=== PATIENT | female | born 2000 ===

== ENCOUNTER 2023-07-13 21:17 | Outpatient (REF) | payer MEDICAID, SELFPAY ==
[2023-07-13 21:20] LABS: Abs Immature Grans 0.05 10^3/uL (0.0-0.06); Absolute Basophil Count 0.06 10^3/uL (0.0-0.2); Absolute Monocyte Count 0.84 10^3/uL (0.1-0.8); Basophils % 0.5; Eosinophils % 1.5; HCT 41.9 % (36.0-46.0); HGB 14.4 g/dL (11.2-15.7); Immature Grans % 0.4; Lymphocytes % 25.6; MCHC 34.4 % (32.0-36.0); MCV 85 fL (80-95); MPV 10.2 fL (8.0-11.0); Monocytes % 7.2; Neutrophils % 64.8; Platelet Count 362 10^3/uL (130-400); RBC 4.96 10^6/uL (3.93-5.22); RDW-SD 36.5 fL
[2023-07-13 21:25] LABS: Absolute Eosinophil Count 0.18 10^3/uL (0.0-0.7); Absolute Neutrophil Count 7.58 10^3/uL (1.2-6.7)
[2023-07-13 21:29] LABS: ALT 30 U/L (14-59); AST 14 U/L (15-37); Albumin 3.9 g/dL (3.4-5.0); Alkaline Phosphatase 58 U/L (46-116); Anion Gap 9.6 mmol/L (3-11); BUN 7 mg/dL (7-18); Bilirubin, Total 0.5 mg/dL (0.2-1.0); CO2 27.4 mmol/L (21.0-32.0); CREATININE 0.8 mg/dL (0.55-1.02); Chloride 103 mmol/L (98-107); Estimated GFR 107.44 (mL/min/1.73m2); Glucose 91 mg/dL (74-106); Lipase 41 U/L (16-77); Potassium 3.7 mmol/L (3.5-5.1); Sodium 140 mmol/L (136-145); Total Protein 7.6 g/dL (6.4-8.2)
== END 2023-07-13 21:18 | disposition home or self-care (01) ==
LOC: LBN 21:17
PROVIDERS: Visit Provider Physician Assistant Medical
DX: R11.0 Nausea (principal)
CPT/HCPCS: 80053; 83690; 85025